=== PATIENT | female | born 1990 | race Two or more races ===

== ENCOUNTER 2024-02-29 16:28 | Emergency (ER) | payer OTHER ==
[~2024-02-29] VITALS: Ht 157.5 cm; Wt 61.2 kg
[2024-02-29] MEDS ORDERED: CIMZIA400 MG SQ (17:30)
[2024-02-29] MEDS ORDERED: 0.9 % SODIUM CHLORIDE 1,000 ML IV STA (19:06)
[2024-02-29 19:58] LABS: HEMATOCRIT 39.6 % (36.0-45.00); HEMOGLOBIN 13.6 g/dL (12.0-15.00); MEAN CELL VOLUME 87.2 fL (80.00-100.00); MEAN CORPUSCULAR HEMOGLOBIN 29.9 pg (27.00-32.0); MEAN CORPUSCULAR HGB CONC 34.3 g/dl (32.0-36.0); PLATELET COUNT 311 K/uL (150-450); RED BLOOD COUNT 4.54 M/uL (4.00-6.00); RED CELL DISTRIBUTION WIDTH 13.3 % (11.5-14.5)
[2024-02-29 20:20] LABS: CALCIUM 8.4 mg/dL (8.5-10.1); CREATININE SERUM 0.95 mg/dL (0.55-1.02); GFR 66.94; MAGNESIUM 1.7 mg/dL (1.8-2.4); PHOSPHOROUS 2.7 mg/dL (2.5-4.9); POTASSIUM 3.43 mEq/L (3.5-5.1)
[2024-02-29 20:23] LABS: INR 1.05; PARTIAL THROMBOPLASTIN TIME 25.2 SECONDS (22.0-34.0); PROTHROMBIN TIME 11.4 SECONDS (9.0-11.5)
[2024-02-29 20:28] LABS: PH,URINE 5.5 (5.0-8.0); URINE APPEARANCE Clear; URINE BILIRRUBIN Negative (NEGATIVE); URINE COLOR Yellow; URINE GLUCOSE Negative (NEGATIVE); URINE KETONE Negative (NEGATIVE); URINE LEUKOCYTE Negative; URINE NITRATE Negative; URINE PROTEIN Trace (NEGATIVE); URINE UROBILINOGEN 0.2 E.U./dl
[2024-02-29 20:30] LABS: URINE BACTERIA 1279.9 uL (0.0-1933); URINE EPITHELIAL CELLS 14.3 uL (0.0-38.8); URINE RBC 6.1 uL (0.0-20.8); URINE WBC 6.7 uL (0.0-23.2)
[2024-02-29 20:39] LABS: URINE BLOOD TRACE; URINE CAST 0.15 uL (0.0-1.40)
[2024-02-29 21:26] LABS: ABG PH 7.441 (7.35-7.45); ABG PO2 95.6 mmHg (80-100); ABG pCO2 31.6 mmHg (35-45); BASE EXCESS -2.1 mmol/l; SaO2 97.7 %
[2024-02-29 21:27] LABS: allen test SATISFACTORY; o2 21 %; puncture site RADIAL RIGHT
== END 2024-02-29 21:50 | disposition home or self-care (01) ==
LOC: ER 16:30
PROVIDERS: Emergency Medicine
DX: R00.2 Palpitations (principal); E86.0 Dehydration; Z20.822 Contact with and (suspected) exposure to COVID-19; Z88.9 Allergy status to unspecified drugs, medicaments and biological substances